=== PATIENT | male | born 1980 | race Caucasian/White ===

== ENCOUNTER 2022-08-20 15:46 | Emergency (ER) | payer SELFPAY ==
[~2022-08-20] VITALS: Ht 177.8 cm; Wt 85.0 kg
[2022-08-20] MEDS ORDERED: CEPHALEXIN 250MG CAPSULE PO ONE (16:30)
[2022-08-20] MEDS ORDERED: IBUPROFEN 400MG TABLET PO ONE (16:30)
[2022-08-20] MEDS ORDERED: SULFAMETHOXAZOLE/TRIMETHOPRIM 800/160MG TABLET PO ONE (16:30)
[2022-08-20] MEDS ORDERED: ACETAMINOPHEN 325MG TABLET PO ONE (16:30)
[2022-08-20 16:47] VITALS: BP 135/87
[2022-08-20] MEDS ORDERED: SULF1TAB48 MT (17:56)
[2022-08-20] MEDS ORDERED: TOPUD PO (17:56)
[2022-08-20] MEDS ORDERED: IBUP-2028 MT (17:56)
[2022-08-20] MEDS ORDERED: CEPH500C2 MT (17:56)
== END 2022-08-20 18:15 | disposition home or self-care (01) ==
LOC: ER 15:56
DX: L03.115 Cellulitis of right lower limb (principal); Z87.891 Personal history of nicotine dependence
CPT/HCPCS: 73610; 73630; 99284